=== PATIENT | male | born 1990 | race Caucasian/White ===

== ENCOUNTER 2018-06-05 09:48 | Day surgery (SDC) | payer MEDICAID ==
[2018-06-05] MEDS ORDERED: FENTANYL PF 100MCG/2ML VIAL IV ONE (09:49)
[2018-06-05] MEDS ORDERED: PROPOFOL 10 MG/ML VIAL IV ONE (09:49)
[2018-06-05] MEDS ORDERED: LIDOCAINE 2% MDV (20MG/ML) 20ML VIAL IV ONE (09:49)
--- NOTE | 2018-06-05 15:30 | Operative Note ---
DATE OF SURGERY: 06/05/2018 OPERATION: COLONOSCOPY to the cecum with cold snare polypectomy x1. INDICATION: Lower abdominal cramping with episodic blood in his stools and bleeding with wiping. Colonoscopy is performed at this time for further evaluation. The patient did have a normal CBC and comprehensive metabolic panel. This is his first examination of the bowel. ANESTHESIA: Intravenous sedation was administered by the department of anesthesiology and included Diprivan titrated to effect. PROCEDURE: Following informed consent from this alert individual including a discussion of the risks and benefits of the procedure and an opportunity for the patient to ask questions, the patient was in the left lateral decubitus position. A digital rectal examination was performed. No abnormalities were noted. Following this, the Olympus [id number] video colonoscope was inserted into the rectum without resistance. The rectal mucosa had a normal appearance with normal folds and distensibility. The colonoscope was advanced up through the bowel to the level of the cecum without much difficulty. Throughout the bowel the mucosa appeared normal, the folds were normal, and the bowel was fairly well distensible. The cecum was well defined by noting the appendiceal orifice and ileocecal valve. The terminal ileum was then cannulated and found to be normal as well. From the base of the cecum, the colonoscope was then withdrawn back through the bowel, reexamining the mucosa upon withdrawal. The ascending colon was free from mucosal abnormalities. In the proximal transverse colon, there was a sessile 6-7 mm polyp noted which was removed with cold snare polypectomy and suctioned through the colonoscope into a collection trap. No other changes were noted throughout the remainder of the bowel. There were no additional polyps seen and no additional mucosal changes appreciated. Retroflexion in the rectum revealed some mild erythema but no significant hemorrhoids were noted. The endoscope was straightened and withdrawn. The patient tolerated the procedure well and was returned to the recovery area in stable condition. IMPRESSION: 1. A 6-7 mm sessile polyp in the proximal transverse colon removed with cold snare polypectomy. 2. Mild pectinitis. 3. Otherwise normal colon and terminal ileum. RECOMMENDATIONS: Further recommendations will be forthcoming pending results of pathology obtained today. Should the patient have re-bleeding, I would recommend hemorrhoidal cream topically. Followup will be with Dulce Maria Leon, nurse practitioner. As always, thank you for allowing me to participate in the care of your patient. CC: MURRAY Lira
--- NOTE | 2018-06-05 15:30 | Operative Note ---
DATE OF SURGERY: 06/05/2018 OPERATION: ESOPHAGOGASTRODUODENOSCOPY. INDICATION: History of recurring abdominal pain with possible melena. The patient presents today for both upper and lower endoscopy. ANESTHESIA: Intravenous sedation was administered by the department of anesthesiology and included Diprivan titrated to effect. PROCEDURE: Following informed consent from this alert individual, including a discussion of the risks and benefits of the procedure and an opportunity for the patient to ask questions, the patient was in the left lateral decubitus position. The Olympus [id number] video endoscope was inserted into the esophagus without resistance. The proximal esophagus had a normal appearance with normal folds and distensibility. The mid and distal esophagus likewise was free from mucosal changes. The squamocolumnar junction was smooth, well defined, and approximated the diaphragmatic hiatus. The structure was traversed and the stomach was entered. The gastric fundus and pars media had a normal appearance, with normal folds and distensibility. The antrum evaluated circumferentially was normal. The pylorus was symmetrical and patent. The duodenal bulb, sweep and descending duodenum were examined in a serial fashion and found to be normal. The endoscope was then withdrawn back into the body of the stomach. Retroflexion accomplished following air insufflation failed to demonstrate any changes. The endoscope was then straightened and removed. The patient tolerated the procedure well and was returned to the recovery area in stable condition. IMPRESSION: Normal esophagogastroduodenoscopy. RECOMMENDATION: The patient will undergo colonoscopy at this time. Further recommendations forthcoming pending results. As always, thank you for allowing me to participate in the care of your patient. GUILHERME
== END 2018-06-05 14:23 | disposition home or self-care (01) ==
LOC: HOP 09:48
PROVIDERS: ATTEND Internal Medicine Gastroenterology
DX: R10.30 Lower abdominal pain, unspecified (principal); K92.1 Melena; D12.3 Benign neoplasm of transverse colon; K62.89 Other specified diseases of anus and rectum; I10 Essential (primary) hypertension
CPT/HCPCS: 45385; 43235; 00813; J3010

== ENCOUNTER 2019-11-17 15:51 | Emergency (ER) | payer MEDICAID ==
--- NOTE | 2019-11-17 16:06 | Emergency Department Record ---
History of Present Illness - General Chief Complaint: Cough Stated Complaint: CONGESTION,COUGH Time Seen by Provider: 11/17/19 15:59 Source: Patient Mode of Arrival: Ambulatory Limitations: No limitations - History of Present Illness Initial Comments: The patient is here due to an 8-9 day hx of cough, colored nasal drainage and now R ear pain. The patient has a long hx of ear issues and does have a tube in the L ear. He was in the 3 days ago and had a neg Flu test. There has been no fever, SOB, AGATHA, or CP. MD Complaint: Cough, Nasal congestion, Rhinorrhea, Other Onset/Timin -: Days(s) Severity: Moderate Severity scale (1-10): 2 - Related Data Previous Rx's Medication Instructions Recorded Cefdinir [Omnicef] 300 mg PO BID #20 cap 11/17/19 Ciprofloxacin HCl/Dexameth 4 drop OT BID #1 drops.susp 11/17/19 [Ciprodex Otic Suspension] Allergies Allergy/AdvReac Type Severity Reaction Status Date / Time No Known Drug Allergies Allergy Verified 11/17/19 15:59 Travel Screening - Travel/Exposure Within Last 30 Days Have you traveled within the last 30 days?: No - Travel/Exposure Within Last Year Have you traveled outside the [place] in the last year?: No - Additonal Travel Details Have you been exposed to anyone with a communicable illness?: No - Travel Symptoms Symptom Screening: None Review of Systems Constitutional: Reports: Malaise. Denies: Chills, Fever Eyes: Denies: Eye discharge ENT: Reports: Congestion, Ear pain Respiratory: Reports: Cough. Denies: Dyspnea Past Medical History - SOCIAL HISTORY Smoking Status: Never smoker Alcohol Use: None Drug Use: None - RESPIRATORY Hx Respiratory Disorders: No - CARDIOVASCULAR Hx Cardio Disorders: Yes Hx Hypertension: Yes - NEURO Hx Neuro Disorders: Yes Hx Headaches: Yes - GI Hx GI Disorders: Yes Hx Abdominal Pain: Yes (intermittent) Hx Rectal Bleeding: Yes (bright red) - Hx Genitourinary Disorders: No - ENDOCRINE Hx Endocrine Disorders: No - MUSCULOSKELETAL Hx Musculoskeletal Disorders: Yes Comment:: fx R arm - PSYCH Hx Psych Problems: No - HEMATOLOGY/ONCOLOGY Hx Hematology/Oncology Disorders: No Family Medical History Any Significant Family History?: Yes Hx Diabetes: Grandparents Physical Exam - General General Appearance: Alert, Oriented x3, Cooperative, No acute distress - Head Head exam: Atraumatic, Normocephalic, Normal inspection - Eye Eye exam: Normal appearance, PERRL, EOMI. negative: Conjunctival injection - ENT ENT exam: negative: TM's normal bilaterally (There are chronic changes bilaterally with erythema and loss of landmarks to the R TM.) Throat exam: Normal inspection. negative: Tonsillar erythema, Tonsillar exudate - Neck Neck exam: Normal inspection, Full ROM. negative: Lymphadenopathy, Meningismus, Tenderness - Respiratory Respiratory exam: Normal lung sounds bilaterally. negative: Respiratory distress - Cardiovascular Cardiovascular Exam: Regular rate, Normal rhythm, Normal heart sounds - GI/Abdominal GI/Abdominal exam: Soft, Normal bowel sounds. negative: Tenderness - Extremities Extremities exam: Normal inspection, Full ROM, Normal capillary refill. negative: Tenderness - Neurological Neurological exam: Alert. negative: Motor sensory deficit - Psychiatric Psychiatric exam: negative: Anxious Course Vital Signs 11/17/19 15:52 Temperature 98.2 F Pulse Rate 71 Respiratory 16 Rate Blood Pressure 150/85 Pulse Ox 97 - Reevaluation(s) Reevaluation #1: I did explain to the patient that due to presumed sinus infection and clear otitis media we will place the patient on oral Abx's and ear drops. He is to see his ENT doctor next week for recheck. 11/17/19 16:10 Disposition Disposition: Discharge Clinical Impression: Otitis media Qualifiers: Otitis media type: unspecified Chronicity: subacute Qualified Code(s): H66.90 - Otitis media, unspecified, unspecified ear Disposition: Home, Self-Care Condition: (2) Stable Instructions: Sinusitis (ED) Additional Instructions: Please take the oral antibiotics along with the ear drops for the R ear. Please see your ENT doctor next week. Return to the ER for any worsening symptoms. Prescriptions: Ciprofloxacin HCl/Dexameth [Ciprodex Otic Suspension] 4 drop OT BID #1 drops.susp Cefdinir [Omnicef] 300 mg PO BID #20 cap Forms: Patient Portal Access Time of Disposition: 16:06 Quality - Quality Measures Quality Measures: N/A - Blood Pressure Screening View Details: Yes Does Patient Have Any of the Following: No Blood Pressure Classification: Pre-Hypertensive BP Reading Systolic Measurement: 150 Diastolic Measurement: 85 Screening for High Blood Pressure: < Pre-Hypertensive BP, F/U Documented > [G8950] Pre-Hypertensive Follow-up Interventions: Referral to alternative/primary care provider.
== END 2019-11-17 16:15 | disposition home or self-care (01) ==
LOC: ER 15:51
DX: H66.91 Otitis media, unspecified, right ear (principal); R05 Cough
CPT/HCPCS: 99283

== ENCOUNTER 2019-12-02 18:54 | Emergency (ER) | payer MEDICAID ==
--- NOTE | 2019-12-02 19:12 | Emergency Department Record ---
History of Present Illness - General Chief Complaint: Cough Stated Complaint: COUGH,NAUSEA Time Seen by Provider: 12/02/19 19:02 Source: Patient Mode of Arrival: Ambulatory Limitations: No limitations - History of Present Illness Initial Comments: 28 yo male presents with about three weeks of cough. He states his cough has been productive at times. He was treated with an antibiotic initially and improved. The last 2-3 days the fevers, chills, and cough returned. The sputum has mild discoloration. No blood. He did not have a Flu shot this year. He is not a smoker. No underlying heart or lung disease history. MD Complaint: Cough, Fever, Nasal congestion -: Week(s) (3) Severity: Moderate Quality: Aching Consistency: Constant Improves With: Nothing Worsens With: Other Context: Sick contacts Associated Symptoms: Chills, Cough, Fever, Nasal congestion Treatments Prior to Arrival: None - Related Data Previous Rx's Medication Instructions Recorded Cefdinir [Omnicef] 300 mg PO BID #20 cap 11/17/19 Azithromycin [Zithromax] 250 mg PO DAILY #4 tab 12/02/19 Allergies Allergy/AdvReac Type Severity Reaction Status Date / Time No Known Drug Allergies Allergy Unverified 12/02/19 19:00 Travel/Exposure Screening - Travel/Exposure Within Last 30 Days Have you traveled within the last 30 days?: No - Travel/Exposure Within Last Year Have you traveled outside the [place] in the last year?: No - Additonal Travel/Exposure Details Have you been exposed to anyone with a communicable illness?: No Review of Systems Constitutional: Reports: Chills, Fever. Denies: Malaise, Weakness Eyes: Denies: Eye discharge, Eye pain, Vision change ENT: Reports: Congestion (improving). Denies: Ear pain, Epistaxis, Throat pain Respiratory: Reports: Cough. Denies: Hemoptysis, Stridor, Wheezes Cardiovascular: Denies: Chest pain Endocrine: Denies: Fatigue Gastrointestinal: Reports: Nausea (earlier today resolved). Denies: Diarrhea, Vomiting Genitourinary: Denies: Dysuria, Frequency, Hematuria Musculoskeletal: Denies: Arthralgia, Back pain, Myalgia Skin: Denies: Bruising Neurological: Denies: Headache Psychiatric: Denies: Anxiety Hematological/Lymphatic: Denies: Easy bleeding, Easy bruising Past Medical History - SOCIAL HISTORY Smoking Status: Never smoker Alcohol Use: Rare Drug Use: None - RESPIRATORY Hx Respiratory Disorders: No - CARDIOVASCULAR Hx Cardio Disorders: Yes Hx Hypertension: Yes - NEURO Hx Neuro Disorders: Yes Hx Headaches: Yes - GI Hx GI Disorders: Yes Hx Abdominal Pain: Yes (intermittent) Hx Rectal Bleeding: Yes (bright red) - Hx Genitourinary Disorders: No - ENDOCRINE Hx Endocrine Disorders: No - MUSCULOSKELETAL Hx Musculoskeletal Disorders: Yes Comment:: fx R arm - PSYCH Hx Psych Problems: Yes Hx Depression: Yes - HEMATOLOGY/ONCOLOGY Hx Hematology/Oncology Disorders: No Family Medical History Any Significant Family History?: Yes Hx Diabetes: Grandparents Course - Reevaluation(s) Reevaluation #1: No fever, tachycardia or hypoxia 12/02/19 19:35 The Influenza is negative He reports he was negative in the [facility] as well Given his persistent symptoms with sputum he will be treated I reviewed his CXR. No acute process. 12/02/19 19:38 Disposition Disposition: Discharge Clinical Impression: Bronchitis Disposition: Home, Self-Care Condition: (1) Good Instructions: Acute Bronchitis (ED) Additional Instructions: Review this ER visit and the tests performed with your family doctor Call your doctor for the next available follow up appointment Return to the ER for a recheck immediately if worse, any new concerns or questions Take the prescriptions provided as directed Prescriptions: Azithromycin [Zithromax] 250 mg PO DAILY #4 tab Forms: Patient Portal Access Time of Disposition: 19:38 Quality - Quality Measures Quality Measures: N/A - Blood Pressure Screening Does Patient Have Any of the Following: No Blood Pressure Classification: Hypertensive Reading Systolic Measurement: 152 Diastolic Measurement: 103 Screening for High Blood Pressure: < Pre-Hypertensive BP, F/U Documented > [G8950] Pre-Hypertensive Follow-up Interventions: Referral to alternative/primary care provider.
[2019-12-02 19:19] LABS: INFLUENZA A NEGATIVE (NEGATIVE)
[2019-12-02 19:24] LABS: INFLUENZA B NEGATIVE (NEGATIVE)
[2019-12-02] MEDS ORDERED: AZITHROMYCIN 500 MG TABLET PO ONE (19:37)
--- NOTE | 2019-12-02 19:54 | RADIOLOGY REPORT ---
EXAMINATION: Frontal and Lateral Chest EXAM DATE: 12/02/2019 7:23 PM INDICATION: cough 3 weeks FINDINGS: Frontal and lateral views show clear lungs, normal heart size, and normal hilar and mediast inal structures. IMPRESSION: Normal chest. Dictated by: Kal Doan MD on 12/02/2019 7:52 PM. .
== END 2019-12-02 19:44 | disposition home or self-care (01) ==
LOC: ER 18:54
DX: J20.9 Acute bronchitis, unspecified (principal); R11.0 Nausea; I10 Essential (primary) hypertension
CPT/HCPCS: 71046; 87400; 99283